=== PATIENT | female | born 1950 | race Caucasian/White ===

== ENCOUNTER 2017-06-25 19:42 | Inpatient (IN) ==
[2017-06-25] MEDS ORDERED: MORPHINE 2 MG/1 ML SYRINGE IV STA (21:10)
[2017-06-25] MEDS ORDERED: SODIUM CHLORIDE 0.9% 1,000 ML IV STA ×2 (21:10→22:35)
[2017-06-25] MEDS ORDERED: METOCLOPRAMIDE 10 MG/2 ML VIAL IV STA (21:11)
[2017-06-25 21:25] LABS: Basophils # 0.1 10*3/uL (0.0-0.2); Basophils % 0.7 % (0.0-0.8); Eosinophils # 0.2 10*3/uL (0.0-0.87); Eosinophils % 2.3 % (0.00-10.9); Hematocrit 37.1 VOL% (35.7-47.0); Hemoglobin 11.8 GM/DL (12.0-16.0); Immature Granulocytes % 0.4 %; Immature Granulocytes Absolute 0.03 #; Lymphocytes # 1.4 10*3/uL (1.4-4.0); Lymphocytes % 19.7 % (21.3-54.2); Mean Corpuscular HGB Conc 31.8 GM/DL (32-36); Mean Corpuscular Hemoglobin 26 PG (27-34); Mean Platelet Volume 9.9 FL (9.6-12.0); Monocytes # 0.5 10*3/uL (0.11-0.8); Monocytes % 6.9 % (1.7-12.7); Neutrophils # 4.9 10*3/uL (1.4-7.4); Platelet Count 270 T/CUMM (130-400); Red Blood Count 4.47 MC/CUMM (3.8-5.5); Red Cell Distribution Width 14.6 % (9.3-17.3); White Blood Count 7.1 T/CUMM (4-12)
[2017-06-25] MEDS ORDERED: METOCLOPRAMIDE 10 MG/2 ML VIAL ONE (21:34)
[2017-06-25] MEDS ORDERED: MORPHINE 2 MG/1 ML SYRINGE ONE (21:35)
[2017-06-25 21:44] LABS: Apearance,Urine Slightly Hazy (Clear); Bacteria,Urine Many /HPF (Few); Bilirubin,Urine Negative (Negative); Blood, Urine Negative (Negative); Glucose,Urine (UA) 150 mg/dL (Negative); Ketones,Urine Negative (Negative); Mucus,Urine Occasional /LPF (Occasional); Nitrite,Urine Positive (Negative); Protein,Urine Negative; RBC,Urine 1 /HPF (0-4); Squamous Epithelial Cell,Urine Occasional /HPF (0-10); Urine Color Yellow (Yellow); Urine Urobilinogen < 2.0 EU/DL (0.2-1.0); WBC,Urine 35 /HPF (0-6)
[2017-06-25 21:45] LABS: Alanine Aminotransferase 41 U/L (13-56); Albumin 3.7 G/DL (3.4-5.0); Alkaline Phosphatase 130 U/L (45-117); Aspartate Amino Transferase 45 U/L (0-37); Bilirubin,Total < 0.39 MG/DL (0.2-1.0); Blood Urea Nitrogen 15 MG/DL (7-18); Glucose 240 MG/DL (74-106); Osmolality,Calculated 283.7 MOS/KG (273-304); Potassium 3.8 MMOL/L (3.5-5.1); Sodium 138 MMOL/L (136-145); Total Protein 6.4 G/DL (6.4-8.3)
[2017-06-25 21:51] LABS: Lactic Acid 2.3 MMOL/L (0.4-2.0)
[2017-06-25] MEDS ORDERED: SODIUM CHLORIDE 0.9% 2,550 ML IV ONE (23:16)
[2017-06-25] MEDS ORDERED: PROMETHAZINE 25 MG/1 ML VIAL IM PRN (23:33)
[2017-06-25] MEDS ORDERED: MORPHINE 2 MG/1 ML SYRINGE IV PRN (23:33)
[2017-06-25] MEDS ORDERED: ONDANSETRON 4 MG/2 ML VIAL IV PRN (23:33)
[2017-06-25] MEDS ORDERED: GLUCAGON 1 MG VIAL IM PRN (23:33)
[2017-06-25] MEDS ORDERED: DEXTROSE 50% 25 GM/50 ML SYRINGE IV PRN (23:33)
--- NOTE | 2017-06-25 23:37 | Emergency Department Note ---
Noel Germain Gwan, am scribing for, and in the presence of, Kian Yuen MD 21:14. IWilfrid Kevin Lee, MD, personally performed the services described in this documentation, ascribed by Jorge Cohen in my presence, and it is both accurate and complete . Arrival - Arrival Chief Complaint: Abdominal / Flank Pain Stated Complaint: stomach swollen and painful ED Nursing Triage Note: Pt to triage with c/o abd being swollen and painful that started . Pt states this happened once before, but she cant remember why. Pt states her last bm was [employer] and it was normal. Pt see Dr. Hernandez for GI. Mode of Arrival: Ambulatory Limitations: No Limitations Source: Patient, Old Records Reviewed, RN Notes Reviewed Time Seen by Provider: 06/25/17 20:52 - History of Present Illness HPI Narrative: Patient is a 66 y/o female who present to the ED with a c/o abd edema and pain with an onset 2 days ago. Patient stated that this has happened before and that she was hospitalized for it. she is unsure of her dx. She confirmed that her last BM was [employer] and that eating exacerbates her pain. Her associated sxs have been nausea. She denies any vomiting or any injury to her abd area. Patient is being followed by Dr. Mcgowan and Dr. Hernandez. During exam, pt did not display any signs of distress. No other problems/complaints reported in ED. Onset (ago): day(s) Consistency: constant Severity: moderate Allergies/Adverse Reactions: Allergies Allergy/AdvReac Type Severity Reaction Status Date / Time codeine AdvReac Unknown/Unable Verified 09/03/15 16:27 to obtain Home Medications: Home Medications Medication Instructions Recorded Confirmed Type Cyclobenzaprine [Flexeril] 10 mg PO BID PRN 09/03/15 05/31/17 History Docusate Sodium 100 mg PO DAILY 09/03/15 05/31/17 History Metformin HCl [Metformin HCl ER] 1,000 mg PO BEDTIME 09/03/15 05/31/17 History Pantoprazole Tab [Protonix Tab] 40 mg PO BID 09/03/15 05/31/17 History Potassium Chloride 20 meq PO DAILY 09/03/15 05/31/17 History Citalopram [CeleXA] 40 mg PO BEDTIME 04/20/17 05/31/17 History Glimepiride 4 mg PO BID 04/20/17 05/31/17 History Losartan [Cozaar] 50 mg PO DAILY 04/20/17 05/31/17 History Magnesium Oxide 2 tablet PO DAILY 04/20/17 05/31/17 History Oxybutynin Chloride [Oxybutynin 15 mg PO DAILY 04/20/17 05/31/17 History Chloride ER] Cholecalciferol [Vitamin D3] 2,000 unit PO DAILY 05/25/17 05/31/17 History Gabapentin 300 mg PO TID 05/25/17 05/25/17 History Vitamin D3/Aloe [id number] 1 tablet PO DAILY 05/25/17 05/25/17 History sitaGLIPtin [Januvia] 100 mg PO DAILY 05/25/17 05/25/17 History Calcium Citrate 600 mg PO QPM 05/31/17 05/31/17 History Review of System - Review of System 12 point system: reviewed and no additional remarkable complaints except as stated - Review of System Cardiovascular: Absent: chest pain, palpitations Gastrointestinal: Present: as per HPI, abdominal pain, nausea. Absent: vomiting , diarrhea Genitourinary female: Absent: abnormal menses, dysuria, discharge, dyspareunia, frequency Medical,Surgical,& Family Hx - Medical History Cardio: History of: Hypertension Psychological: History of: Depression Neurology: History of: Migraine, Peripheral Neuropathy, Seizures (2010) Endocrine: History of: Diabetes Mellitus (NIDDM), Thyroid Disorder (has 2 tumors on thyroid-benign, radioactive pill) No history of: Dyslipidemia Respiratory: History of: Asthma (brought on by cigarettes or perfume), Obstructive Sleep Apnea (USES CPAP AT HOME) Genitourinary: History of: Kidney Stones (2010) No history of: Bladder Problem Gastrointestinal: History of: Bowel Obstruction, GERD, GI Problems (DIABETIC INTESTINAL PARALYSIS) Musculoskeletal: History of: Amputation, Musculoskeletal Problems (diabetic neuropathy) Hematology: No history of: Blood Transfusion Reaction Other: History of: Anesthesia Reactions (bp drops) No history of: Cancer - Surgical History Cardiac Surgeries: Sugical HX of: Cardiac Catheterization (2011) Thoracic Surgeries: Patient denies;: Organ Transplant, Lobectomy Neurologic Surgeries: Patient denies: Neurologic Surgery HEENT Surgeries: Surgical HX of: Tonsilectomy & Adenoidectomy Patient denies: Thyroid Surgery Comment Only: Eye Surgery (cataracts) Abdominal Surgeries: Surgical HX of: Abdominal Surgery, Appendectomy, Cholecystectomy, Colonoscopy, EGD Patient denies: Hernia Repair Reproductive Surgeries: Surgical HX of;: Genitourinary Surgery (had stones removed), Gynecologic Surgery, Hysterectomy Orthopedic Surgeries: Surgical HX of;: Orthopedic Surgery (knee scope RIGHT) - Family History Family History: Reports;: Family Cancer (pancreatic cancer-uncle, mother-breast/ colon), Family Diabetes - Social History Smoking Status: Unknown if ever smoked Frequency of Alcohol Use: None Type of Drug Use: None Exam Vital Signs: Vital Signs Temperature 97.5 F L 06/25/17 20:38 Pulse Rate 67 06/25/17 20:38 Respiratory Rate 18 06/25/17 20:38 Blood Pressure 142/69 06/25/17 20:38 O2 Sat by Pulse Oximetry 98 06/25/17 20:07 - General General appearance: alert, in no apparent distress - Head Head exam: Present: atraumatic, normocephalic - Eye Eye exam: Present: normal appearance, PERRL, EOMI - ENT ENT exam: Present: normal oropharynx, mucous membranes moist, TM's normal bilaterally, normal external ear exam - Neck Neck exam: Present: full ROM, trachea midline. Absent: tenderness - Chest Chest inspection: Present: symmetric chest wall rise. Absent: tenderness - Respiratory Respiratory exam: Present: normal lung sounds bilaterally. Absent: respiratory distress - Cardiovascular Cardiovascular exam: Present: regular rate, normal rhythm, normal heart sounds. Absent: murmur - Abdominal Exam Abdominal exam: Present: distention, tenderness (generalized ) - Extremities Exam Extremities exam: Present: full ROM. Absent: tenderness - Back Exam Back exam: Present: full ROM. Absent: tenderness - Neurological Exam Neurological exam: Present: alert, oriented X3, CN II-XII intact. Absent: motor sensory deficit - Psychiatric Psychiatric exam: Present: normal affect, normal mood - Skin Skin exam: Present: warm, dry, intact, normal color Course Course Narrative: will admit for IV abx and fluids and repeat lactate Results - Labs CBC & BMP: 06/25/17 21:14 06/25/17 21:14 Lab Results: I have reviewed the patients labs Labs: Laboratory Tests 06/25/17 21:14 WBC 7.1 RBC 4.47 Hgb 11.8 L Hct 37.1 MCV 83.0 L MCH 26 L MCHC 31.8 L Plt Count 270 Lymph % (Auto) 19.7 L Laboratory Tests 06/25/17 06/25/17 21:14 21:14 Sodium 138 Potassium 3.8 Chloride 104 Carbon Dioxide 28 BUN 15 Creatinine 0.80 Glucose 240 H Lactic Acid 2.3 H AST 45 H Alkaline Phosphatase 130 H Urine pH 6.0 Ur Specific Bond 1.010 Urine Glucose (UA) 150 Urine Nitrate Positive H Urine Urobilinogen < 2.0 H Urine Leukocytes Small H Urine RBC 1 Urine WBC 35 Ur Squamous Epith Cells Occasional Urine Mucus Occasional - Diagnostic Findings Procedure: CT Abdomen and Pelvis: image reviewed by me (see report ) Disposition Clinical Impression: UTI (urinary tract infection), Elevated lactic acid level Case discussed with: patient Disposition: Still a Patient Condition: Stable
[2017-06-26] MEDS: SODIUM CHLORIDE 0.45% 1,000 ML IV SCH ×4 (02:00→23:55)
[2017-06-26 02:25] LABS: Basophils # 0.1 10*3/uL (0.0-0.2); Basophils % 0.8 % (0.0-0.8); Eosinophils # 0.2 10*3/uL (0.0-0.87); Eosinophils % 2.5 % (0.00-10.9); Hematocrit 33.8 VOL% (35.7-47.0); Hemoglobin 10.6 GM/DL (12.0-16.0); Immature Granulocytes % 0.8 %; Immature Granulocytes Absolute 0.05 #; Lymphocytes # 1.2 10*3/uL (1.4-4.0); Lymphocytes % 19.6 % (21.3-54.2); Mean Corpuscular HGB Conc 31.4 GM/DL (32-36); Mean Corpuscular Hemoglobin 26 PG (27-34); Mean Corpuscular Volume 83.9 FL (87-102); Mean Platelet Volume 9.9 FL (9.6-12.0); Monocytes # 0.4 10*3/uL (0.11-0.8); Monocytes % 6.8 % (1.7-12.7); Neutrophils # 4.2 10*3/uL (1.4-7.4); Neutrophils % 69.5 % (38.7-73.9); Platelet Count 230 T/CUMM (130-400); Red Blood Count 4.03 MC/CUMM (3.8-5.5); Red Cell Distribution Width 14.6 % (9.3-17.3); White Blood Count 6.1 T/CUMM (4-12)
[2017-06-26 02:50] LABS: Calcium 8.1 MG/DL (8.5-10.1); Osmolality,Calculated 286.1 MOS/KG (273-304)
[2017-06-26] MEDS: PIPERACILLIN/TAZOBACTAM 3,375 MG in SODIUM CHLORIDE 0.9% 100 ML IV SCH ×3 (03:13→18:30)
--- NOTE | 2017-06-26 08:09 | CT Report ---
Exam: CT abdomen and pelvis with and without intravenous contrast Exam date: 06/25/2017 9:10 PM Clinical History: 66 years,Female, abdominal pain, generalized Technique: Axial computed tomography images of the abdomen and pelvis with and without intravenous contrast. All CT scans at this facility use one or more dose reduction techniques. Automated exposure control, MA/KV adjustment per patient size (including targeted exam Square dose is matched to indication) or iterative reconstruction technique Comparison: November 04, 2015 at 0906 hours Findings: Lower thorax: No acute pathology within the lung bases. Abdomen: Liver: Diffusely hypoattenuating Gallbladder and bile ducts: Prior cholecystectomy with mild intra and extrahepatic ductal dilatation. Pancreas: Pancreas is normal. Spleen: Spleen is normal. Adrenals: No adrenal mass. Kidneys and ureters: Normal in size, echotexture and morphology. No hydronephrosis. No ureteral calculus. Stomach and bowel: A few scattered colonic diverticula. No associated inflammatory changes. Stool dispersed throughout the colon. Appendix: Not clearly visualized. No secondary findings to suggest appendicitis. Pelvis: Bladder: Unremarkable Reproductive: Prior hysterectomy. Abdomen and pelvis: Intraperitoneal space: No pneumoperitoneum. No free intraperitoneal fluid Bones/joints: No acute osseous abnormality. Soft tissues: No mass Vasculature: No aortic aneurysm. Atheromatous calcifications noted along the aorta and branch vessels. Lymph nodes: No adenopathy Impression: 1. Diverticulosis coli 2. Moderate stool dispersed throughout the colon 3. Hepatic steatosis 4. Other findings as discussed above PROCEDURE INTERPRETED AT [facility] DEPARTMENT OF RADIOLOGY Final Report Signed by: aRy Thomas
[2017-06-26] MEDS: DOCUSATE SODIUM 100 MG CAPSULE PO SCH ×2 (09:22→21:53)
[2017-06-26] MEDS: ENOXAPARIN 40 MG/0.4 ML SYRINGE SUBCUT SCH (09:22)
[2017-06-26] MEDS: INSULIN REGULAR 100 UNIT/ML SUBCUT SCH ×4 (09:23→22:00)
[2017-06-26] MEDS: PANTOPRAZOLE 40 MG TABLET PO SCH (09:23)
--- NOTE | 2017-06-26 10:27 | Family Practice History&Phys ---
Assessment and Plan (1) Abdominal pain Status: Acute Assessment and plan: , Abdominal distention improving, on IV fluids, clear liquid diet, will consult GI 2. UTI, urine culture noted, continue IV Zosyn 3. History of diverticulosis, H&H stable, 4. DM , stable , continue sliding scale insulin, 5.HTN , continue current antihypertensives, 6. Sleep apnea, continue CPAP Current Visit: Yes (2) GERD (gastroesophageal reflux disease) Status: Chronic Current Visit: Yes (3) History of diverticulosis Status: Chronic Current Visit: Yes (4) UTI (urinary tract infection) Status: Acute Current Visit: Yes (5) Hypertension Status: Chronic Current Visit: Yes (6) Obstructive sleep apnea Status: Chronic Current Visit: Yes (7) Type 2 diabetes mellitus Status: Chronic Current Visit: Yes History of Present Illness Chief complaint: Abdominal pain/distention since 3 days History of present illness: Ms. Carvalho is a 66 year old female PCP: Dr. Mcgowan, Patient admitted for abdominal pain, distention since 3 days, getting worse. Abdominal pain was intermittent, intensity 9/10, with nausea, no vomiting, no diarrhea.[place] short of breath because of the abdominal distention pushing into the chest. No difficulty swallowing. Patient has similar complaints of abdominal distention/pain 1+ year ago,Patient has history chronic constipation, takes laxative often., last bowel movement this a.m., regular no blood. history of diabetes, hypertension, osteoarthritis, restless leg syndrome, depression and overactive bladder, sleep apnea on CPAP. EGD report, noted 05/31/2017, done by Dr. Hernandez,Postop diagnosis: 1. Gastroesophageal reflux disease-continue PPI treatment and antireflux precautions. 2. Esophageal stricture-repeat dilatation on as-needed basis. C scope noted, 11/19/2015, done by Dr. Hernandez, as per report assessment diverticulosis of colon, has history of colon polyps, Home Medications Medication Instructions Recorded Confirmed Type Cyclobenzaprine [Flexeril] 15 mg PO BID PRN 09/03/15 06/26/17 History Docusate Sodium 200 mg PO BID 09/03/15 06/26/17 History Metformin HCl [Metformin HCl ER] 1,000 mg PO BID 09/03/15 06/26/17 History Pantoprazole Tab [Protonix Tab] 40 mg PO BID 09/03/15 06/26/17 History Potassium Chloride 20 meq PO DAILY 09/03/15 06/26/17 History Citalopram [CeleXA] 40 mg PO BEDTIME 04/20/17 06/26/17 History Glimepiride 4 mg PO BID 04/20/17 06/26/17 History Losartan [Cozaar] 50 mg PO DAILY 04/20/17 06/26/17 History Magnesium Oxide 2 tablet PO BID 04/20/17 06/26/17 History Oxybutynin Chloride [Oxybutynin 15 mg PO DAILY 04/20/17 06/26/17 History Chloride ER] Cholecalciferol [Vitamin D3] 2,000 unit PO DAILY 05/25/17 06/26/17 History sitaGLIPtin [Januvia] 100 mg PO DAILY 05/25/17 06/26/17 History Calcium Citrate 600 mg PO QPM 05/31/17 06/26/17 History Fluorouracil 5% Cream [Efudex 5% 1 applic TOP BID 06/26/17 06/26/17 History Cream] Gabapentin Cap/Tab [Neurontin 400 mg PO TID 06/26/17 06/26/17 History Cap/Tab] Insulin Degludec [Tresiba 200 units SUBCUT DAILY 06/26/17 06/26/17 History Flextouch U-200] Saccharomyces Boulardii [Probiotic] 10 mg PO DAILY 06/26/17 06/26/17 History Allergies Allergy/AdvReac Type Severity Reaction Status Date / Time codeine AdvReac Unknown/Unable Verified 09/03/15 16:27 to obtain - Constitutional Constitutional: Present: as per HPI - EENT Eyes: Present: as per HPI Nose, mouth and throat: Present: as per HPI - Cardiovascular Cardiovascular: Present: as per HPI - Respiratory Respiratory: Present: as per HPI - Gastrointestinal Gastrointestinal: Present: as per HPI - Genitourinary Genitourinary: Present: as per HPI - Musculoskeletal Musculoskeletal: Present: as per HPI - Neurological Neurological: Present: as per HPI - Psychiatric Psychiatric: Present: as per HPI - Endocrine Endocrine: Present: as per HPI - Hematologic/Lymphatic Hematologic/Lymphatic: Present: as per HPI Medical,Surgical,& Family Hx - Medical History Cardio: History of: Hypertension Psychological: History of: Depression Neurology: History of: Migraine, Peripheral Neuropathy, Seizures (2010) Endocrine: History of: Diabetes Mellitus (NIDDM), Thyroid Disorder (has 2 tumors on thyroid-benign, radioactive pill) No history of: Dyslipidemia Respiratory: History of: Asthma (brought on by cigarettes or perfume), Obstructive Sleep Apnea (USES CPAP AT HOME) Genitourinary: History of: Kidney Stones (2010) No history of: Bladder Problem Gastrointestinal: History of: Bowel Obstruction, GERD, GI Problems (DIABETIC INTESTINAL PARALYSIS) Musculoskeletal: History of: Amputation, Musculoskeletal Problems (diabetic neuropathy) Hematology: No history of: Blood Transfusion Reaction Other: History of: Anesthesia Reactions (bp drops) No history of: Cancer - Surgical History Cardiac Surgeries: Sugical HX of: Cardiac Catheterization (2011) Thoracic Surgeries: Patient denies;: Organ Transplant, Lobectomy Neurologic Surgeries: Patient denies: Neurologic Surgery HEENT Surgeries: Surgical HX of: Tonsilectomy & Adenoidectomy Patient denies: Thyroid Surgery Comment Only: Eye Surgery (cataracts) Abdominal Surgeries: Surgical HX of: Abdominal Surgery, Appendectomy, Cholecystectomy, Colonoscopy, EGD Patient denies: Hernia Repair Reproductive Surgeries: Surgical HX of;: Genitourinary Surgery (had stones removed), Gynecologic Surgery, Hysterectomy Orthopedic Surgeries: Surgical HX of;: Orthopedic Surgery (knee scope RIGHT) - Family History Family History: Reports;: Family Cancer (pancreatic cancer-uncle, mother-breast/ colon), Family Diabetes - Social History Smoking Status: Unknown if ever smoked Frequency of Alcohol Use: None Type of Drug Use: None Exam - Constitutional Vitals: Period Temp Pulse Resp BP Sys/Hope Pulse Ox Last 24 Hr 97.5 F-98.0 F 53-67 15-18 125-162/69-84 94-100 Exam: Examination: GENERAL: Alert, oriented, in no acute distress , obese female pt, lying in the bed, HEENT: normal,PERRLA. EOMI. Mucous membranes are moist. NECK: Neck is supple. No JVD. No carotid bruit. No thyromegaly. CVS: Regular rate and rhythm. S1 and S2 are normal. RESPIRATORY: Clear to ausculation bilaterally , No wheezes, rales or rhonchi. ABDOMEN: Soft , distended abdomen, no tenderness at the time of exam, no guarding, no rigidity, no rebound tenderness. Bowel sounds are present. No hepatosplenomegaly. EXT: No edema. APPEALS WRITER: Patient is awake, alert and oriented, Cranial nerves 2-12 grossly intact. Motor strength normal. Results - Labs CBC & BMP: 06/26/17 02:03 06/26/17 02:03 Lab Results: I have reviewed the past 24 hour labs - Diagnostic Findings Procedure: CT: image reviewed by me, report reviewed by me
[2017-06-26] MEDS ORDERED: SODIUM CHLORIDE 0.9% 1,000 ML IV SCH (11:00)
[2017-06-26] MEDS: LOSARTAN 50 MG TABLET PO SCH (16:06)
[2017-06-26] MEDS: ACETAMINOPHEN 325 MG TABLET PO PRN ×2 (18:33→22:02)
[2017-06-27] MEDS: PIPERACILLIN/TAZOBACTAM 3,375 MG in SODIUM CHLORIDE 0.9% 100 ML IV SCH ×3 (03:30→18:05)
[2017-06-27 06:39] LABS: Basophils # 0.1 10*3/uL (0.0-0.2); Basophils % 1.2 % (0.0-0.8); Eosinophils # 0.3 10*3/uL (0.0-0.87); Eosinophils % 4.2 % (0.00-10.9); Hematocrit 37.7 VOL% (35.7-47.0); Hemoglobin 11.9 GM/DL (12.0-16.0); Immature Granulocytes % 0.5 %; Immature Granulocytes Absolute 0.03 #; Lymphocytes % 17.4 % (21.3-54.2); Mean Corpuscular HGB Conc 31.6 GM/DL (32-36); Mean Corpuscular Hemoglobin 26 PG (27-34); Mean Corpuscular Volume 82.3 FL (87-102); Mean Platelet Volume 10.4 FL (9.6-12.0); Monocytes # 0.4 10*3/uL (0.11-0.8); Monocytes % 7.1 % (1.7-12.7); Neutrophils # 4.1 10*3/uL (1.4-7.4); Neutrophils % 69.6 % (38.7-73.9); Platelet Count 256 T/CUMM (130-400); Red Blood Count 4.58 MC/CUMM (3.8-5.5); Red Cell Distribution Width 14.6 % (9.3-17.3); White Blood Count 5.9 T/CUMM (4-12)
[2017-06-27 07:09] LABS: Calcium 8.8 MG/DL (8.5-10.1); Free T4 (Free Thyroxine) 1.48 NG/DL (0.76-1.46); Magnesium 2.2 MG/DL (1.8-2.4); Osmolality,Calculated 283.3 MOS/KG (273-304); Potassium 3.8 MMOL/L (3.5-5.1); Thyroid Stimulating Hormone 1.69 uIU/ml (0.358-3.74)
[2017-06-27] MEDS: LOSARTAN 50 MG TABLET PO SCH (08:58)
[2017-06-27] MEDS: DOCUSATE SODIUM 100 MG CAPSULE PO SCH ×2 (08:58→20:54)
[2017-06-27] MEDS: ENOXAPARIN 40 MG/0.4 ML SYRINGE SUBCUT SCH (08:58)
[2017-06-27] MEDS: PANTOPRAZOLE 40 MG TABLET PO SCH (08:58)
[2017-06-27] MEDS: INSULIN REGULAR 100 UNIT/ML SUBCUT SCH ×4 (08:58→20:54)
--- NOTE | 2017-06-27 08:58 | Internal Med Progress Note ---
Assessment and Plan (1) Abdominal pain Status: Acute Assessment and plan: 66-year-old female admitted to acute care * Abdominal pain and discomfort. CT scan of abdomen was reviewed. It shows scattered stool. It could be a high impaction will check her for that. GI is consulted for evaluation and recommendations * UTI. Continue antibiotics till cultures are reported * Elevated liver enzymes. Patient with previous cholecystectomy * Diabetes. Continue current treatment * Hypertension. Blood pressure is slightly high. Current Visit: Yes (2) UTI (urinary tract infection) Status: Acute Current Visit: Yes (3) GERD (gastroesophageal reflux disease) Status: Chronic Current Visit: Yes (4) History of diverticulosis Status: Chronic Current Visit: Yes (5) Hypertension Status: Chronic Current Visit: Yes (6) Type 2 diabetes mellitus Status: Chronic Current Visit: Yes Internal Medicine - PN: Subj Interval history: Patient seen and examined. Her chart was reviewed. She continues to have complaints of abdominal distention. She has been on clear liquids for past couple of days. She has been having bowel movements. She denies any significant pain. She denies any nausea or vomiting. Exam (Progress Note) - Constitutional Vitals: Period Temp Pulse Resp BP Sys/Hope Pulse Ox Last 24 Hr 97.2 F-98.4 F 52-70 16-20 158-197/73-90 92-98 Exam: Examination: GENERAL: NAD. HEENT: PERRLA. EOMI. NECK: Neck is supple. CVS: Regular rate and rhythm. S1 and S2 are normal. RESPIRATORY: Lungs are clear. ABDOMEN: Soft and nontender. Bowel sounds are present. No hepatosplenomegaly. EXT: No edema. Peripheral pulses are present. [employer]: Patient is awake, alert and oriented to time place and person. Cranial nerves II through XII are grossly intact. Motor strength is 5 over 5 both upper and lower extremities. SKIN: Warm and dry. MSK: No obvious deformity. Results - Labs CBC & BMP: 06/27/17 04:54 06/27/17 04:54 Lab Results: I have reviewed the past 24 hour labs
--- NOTE | 2017-06-27 09:09 | Gastrointestinal Progress Note ---
Assessment and Plan (1) Abdominal pain Status: Acute Assessment and plan: 06/27-admitted with abdominal pain and bloating with prior history of this in the past. Prior endoscopy noted as below. Currently being treated for UTI. CT of abdomen findings noted of diverticulosis. Continue to monitor at present time. Plan an addendum to followed by Dr. Hernandez. Current Visit: Yes Gastroenterology - PN: Subj Interval history: CC: Abdominal pain Patient is seen, awake and alert. States she rested fairly well last night. Patient was admitted on Tuesday with a 2 day history of abdominal pain and bloating. She states that this came on fairly sudden she denies any nausea vomiting it was associated with this. She had no complaints of diarrhea or changes in her bowel patterns as well. She does complain of some epigastric tenderness but states she has "arthritis" in her sternal area which will flare from time to time. Her last hospital stay for this abdominal pain was in November of last year which patient states this feels very similar to that. She was admitted at that time for obstipation and questionable ileus as well as gastroenteritis. She states this episode has very similar presentation. Her last endoscopy was noted in 2015 for colonoscopy with findings of diverticulosis however no colon polyps. She also had an EGD done in earlier this year with findings of stricture with dilation. She was found on admission to have a UTI as well as elevated lactic acid level which is now normalized. She is tolerating clear liquids at this time however still complaining of abdominal bloating. Abdomen is soft, nontender to palpation. ROS: Denies shortness of breath or chest pain Exam (Progress Note) - Constitutional Vitals: Period Temp Pulse Resp BP Sys/Hope Pulse Ox Last 24 Hr 97.2 F-98.4 F 52-70 16-20 158-197/73-90 92-98 General appearance: normal weight, no acute distress - Head Head exam: Present: normal inspection, normocephalic - Eye Eye exam: Present: other (Lids and conjunctivae are unremarkable). Absent: scleral icterus - ENT ENT exam: Present: normal exam, normal oropharynx - Neck Neck exam: Present: normal inspection - Respiratory Respiratory exam: Present: clear to auscultation bilaterally. Absent: rales, rhonchi, wheezes - Cardiovascular Cardiovascular exam: Present: regular rate and rhythm. Absent: diastolic murmur , JVD, systolic murmur - GI/Abdominal GI/Abdominal exam: Present: normal bowel sounds, soft. Absent: ascites, distended, mass, organomegaly, tenderness - Extremities Exam Extremities exam: Present: normal inspection, full ROM - Back Exam Back exam: Present: normal inspection - Neurological Exam Neurological exam: Present: alert, oriented X3 - Psychiatric Psychiatric exam: Present: normal affect, normal mood - Skin Skin exam: Present: normal color, warm, dry Results - Labs CBC & BMP: 06/27/17 04:54 06/27/17 04:54 Lab Results: I have reviewed the past 24 hour labs - Diagnostic Findings Procedure: CT Abdomen and Pelvis: report reviewed by me
--- NOTE | 2017-06-27 09:15 | Gastrointestinal Consult Note ---
<Rosy Morejon - Last Filed: 06/27/17 09:11> Assessment and Plan (1) Abdominal pain Status: Acute Assessment and plan: 06/27-5 day history of abdominal pain and distention with nausea. Prior history in the past with no etiology for symptoms at that time other than obstipation/ gastroneuritis. CT of abdomen noted as below showing diverticulosis. Findings of UTI with IV antibiotic initiation noted. No complaints of nausea vomiting. Prior endoscopy also noted as below. Plan an addendum to followed by Dr. Hernandez. Current Visit: Yes History of Present Illness Chief complaint: Abdominal pain History of present illness: Ms. Carvalho is a 66 year old female who was admitted to the hospital on Tuesday with 2 day history of abdominal pain and bloating. Patient states that she was in her usual state of health until when she noticed that her abdomen began to swell and she has some discomfort. She denies any associated vomiting with this but did have some mild nausea. She states that she has a history of constipation however she has had no changes in her bowel patterns with this. 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 She states that she has had this abdominal pain and distention in the past and was hospitalized in 2016 for IBS with obstipation and questionable ileus as well as gastroenteritis. She states this episode has a very similar presentation. Patient states that she does take laxatives for bowel movements but she has been having fairly regular movements without any melena or hematochezia. She denies any recent weight loss. On admission, she had a CT of the abdomen done which showed diverticulosis as well as moderate stool throughout the colon. She was also found to have a UTI and has had Zosyn IV started. Her last endoscopy was in 2016 for colonoscopy with only findings of diverticulosis. In 2017 she had an EGD with esophageal stricture dilation. She denies any difficulty swallowing, increased GERD, dyspepsia. Patient states that she is becoming fairly frustrated with these episodes of abdominal bloating due to "no answers for this yet". Patient was also noted to have very mildly elevated AST and alkaline phosphatase on admission. She is post cholecystectomy. Home Medications Medication Instructions Recorded Confirmed Type Cyclobenzaprine [Flexeril] 15 mg PO BID PRN 09/03/15 06/26/17 History Docusate Sodium 200 mg PO BID 09/03/15 06/26/17 History Metformin HCl [Metformin HCl ER] 1,000 mg PO BID 09/03/15 06/26/17 History Pantoprazole Tab [Protonix Tab] 40 mg PO BID 09/03/15 06/26/17 History Potassium Chloride 20 meq PO DAILY 09/03/15 06/26/17 History Citalopram [CeleXA] 40 mg PO BEDTIME 04/20/17 06/26/17 History Glimepiride 4 mg PO BID 04/20/17 06/26/17 History Losartan [Cozaar] 50 mg PO DAILY 04/20/17 06/26/17 History Magnesium Oxide 2 tablet PO BID 04/20/17 06/26/17 History Oxybutynin Chloride [Oxybutynin 15 mg PO DAILY 04/20/17 06/26/17 History Chloride ER] Cholecalciferol [Vitamin D3] 2,000 unit PO DAILY 05/25/17 06/26/17 History sitaGLIPtin [Januvia] 100 mg PO DAILY 05/25/17 06/26/17 History Calcium Citrate 600 mg PO QPM 05/31/17 06/26/17 History Fluorouracil 5% Cream [Efudex 5% 1 applic TOP BID 06/26/17 06/26/17 History Cream] Gabapentin Cap/Tab [Neurontin 400 mg PO TID 06/26/17 06/26/17 History Cap/Tab] Insulin Degludec [Tresiba 200 units SUBCUT DAILY 06/26/17 06/26/17 History Flextouch U-200] Saccharomyces Boulardii [Probiotic] 10 mg PO DAILY 06/26/17 06/26/17 History Allergies Allergy/AdvReac Type Severity Reaction Status Date / Time codeine AdvReac Unknown/Unable Verified 09/03/15 16:27 to obtain Medical,Surgical,& Family Hx - Medical History Cardio: History of: Hypertension Psychological: History of: Depression Neurology: History of: Migraine, Peripheral Neuropathy, Seizures (2010) Endocrine: History of: Diabetes Mellitus (NIDDM), Thyroid Disorder (has 2 tumors on thyroid-benign, radioactive pill) No history of: Dyslipidemia Respiratory: History of: Asthma (brought on by cigarettes or perfume), Obstructive Sleep Apnea (USES CPAP AT HOME) Genitourinary: History of: Kidney Stones (2010) No history of: Bladder Problem Gastrointestinal: History of: Bowel Obstruction, GERD, GI Problems (DIABETIC INTESTINAL PARALYSIS) Musculoskeletal: History of: Amputation, Musculoskeletal Problems (diabetic neuropathy) Hematology: No history of: Blood Transfusion Reaction Other: History of: Anesthesia Reactions (bp drops) No history of: Cancer - Surgical History Cardiac Surgeries: Sugical HX of: Cardiac Catheterization (2011) Thoracic Surgeries: Patient denies;: Organ Transplant, Lobectomy Neurologic Surgeries: Patient denies: Neurologic Surgery HEENT Surgeries: Surgical HX of: Tonsilectomy & Adenoidectomy Patient denies: Thyroid Surgery Comment Only: Eye Surgery (cataracts) Abdominal Surgeries: Surgical HX of: Abdominal Surgery, Appendectomy, Cholecystectomy, Colonoscopy, EGD Patient denies: Hernia Repair Reproductive Surgeries: Surgical HX of;: Genitourinary Surgery (had stones removed), Gynecologic Surgery, Hysterectomy Orthopedic Surgeries: Surgical HX of;: Orthopedic Surgery (knee scope RIGHT) - Family History Family History: Reports;: Family Cancer (pancreatic cancer-uncle, mother-breast/ colon), Family Diabetes - Social History Smoking Status: Unknown if ever smoked Frequency of Alcohol Use: None Type of Drug Use: None 12 point system: reviewed and no additional remarkable complaints except as stated - Constitutional Constitutional: Present: as per HPI - EENT Eyes: Present: as per HPI Ears: Present: as per HPI Nose, mouth and throat: Present: as per HPI - Cardiovascular Cardiovascular: Present: as per HPI - Respiratory Respiratory: Present: as per HPI - Gastrointestinal Gastrointestinal: Present: as per HPI, abdominal pain, bloating, nausea - Genitourinary Genitourinary: Present: as per HPI - Musculoskeletal Musculoskeletal: Present: as per HPI - Neurological Neurological: Present: as per HPI - Psychiatric Psychiatric: Present: as per HPI - Endocrine Endocrine: Present: as per HPI - Hematologic/Lymphatic Hematologic/Lymphatic: Present: as per HPI Exam - Constitutional Vitals: Period Temp Pulse Resp BP Sys/Hope Pulse Ox Last 24 Hr 97.2 F-98.4 F 52-70 16-20 158-197/73-90 92-98 General appearance: normal weight, no acute distress - Head Head exam: Present: normal inspection, normocephalic - Eye Eye exam: Present: other (Lids and conjunctivae are unremarkable). Absent: scleral icterus - ENT ENT exam: Present: normal exam, normal oropharynx - Neck Neck exam: Present: normal inspection - Respiratory Respiratory exam: Present: clear to auscultation bilaterally. Absent: rales, rhonchi, wheezes - Cardiovascular Cardiovascular exam: Present: regular rate and rhythm. Absent: JVD, systolic murmur - GI/Abdominal GI/Abdominal exam: Present: normal bowel sounds, distended, soft. Absent: ascites, mass, organomegaly, tenderness - Extremities Exam Extremities exam: Present: normal inspection, full ROM - Back Exam Back exam: Present: normal inspection - Neurological Exam Neurological exam: Present: alert, oriented X3 - Psychiatric Psychiatric exam: Present: normal affect, normal mood - Skin Skin exam: Present: normal color, warm, dry Results - Labs CBC & BMP: 06/27/17 04:54 06/27/17 04:54 Lab Results: I have reviewed the past 24 hour labs - Diagnostic Findings Procedure: CT Abdomen and Pelvis: report reviewed by me <Lj Hernandez - Last Filed: 06/27/17 20:36> History of Present Illness Chief complaint: 3030 History of present illness: Ms. Carvalho is a 66 year old female Exam - Constitutional Vitals: Period Temp Pulse Resp BP Sys/Hope Pulse Ox Last 24 Hr 97.2 F-98.4 F 52-108 18-20 157-197/79-97 93-98 Results - Labs CBC & BMP: 06/27/17 04:54 06/27/17 04:54
[2017-06-27] MEDS: ACETAMINOPHEN 325 MG TABLET PO PRN ×2 (12:22→18:05)
[2017-06-27] MEDS: SODIUM CHLORIDE 0.45% 1,000 ML IV SCH (15:40)
[2017-06-28] MEDS: SODIUM CHLORIDE 0.45% 1,000 ML IV SCH ×2 (00:51→06:15)
[2017-06-28] MEDS: PIPERACILLIN/TAZOBACTAM 3,375 MG in SODIUM CHLORIDE 0.9% 100 ML IV SCH ×2 (02:53→12:06)
[2017-06-28] MEDS: ACETAMINOPHEN 325 MG TABLET PO PRN ×2 (04:34→11:12)
--- NOTE | 2017-06-28 08:45 | CT Report ---
History: Severe headache Date: 06/28/2017 Study: CT head without contrast Comparison exam: No previous head CT available Transaxial CT sections were obtained through the brain without contrast. The ventricles are midline in position without evidence of hydrocephalus. There is no mass or area of parenchymal hemorrhage. There is no gross CT evidence of acute cortical stroke. There is no extra-axial hematoma. The sinuses are generally clear. There is no obvious skull fracture. Impression: No acute intracranial process This CT exam was performed using one or more the following dose reduction techniques: Automated exposure control, adjustment of the MA and/or KV according to patient size, or use of iterative reconstruction technique. PROCEDURE INTERPRETED AT [facility] DEPARTMENT OF RADIOLOGY Final Report Signed by: Dr. Windy Yuen
[2017-06-28] MEDS: INSULIN REGULAR 100 UNIT/ML SUBCUT SCH ×2 (08:54→12:05)
--- NOTE | 2017-06-28 09:16 | Gastrointestinal Progress Note ---
<DarleenRosy Denzel - Last Filed: 06/28/17 09:14> Assessment and Plan (1) Abdominal pain Status: Acute Assessment and plan: 06/28-abdominal pain improved. Tolerating diet at this time. She has for tentative discharge home today per patient. Advance diet and continue to monitor. Plan an addendum to follow Dr. Hernandez. 06/27-5 day history of abdominal pain and distention with nausea. Prior history in the past with no etiology for symptoms at that time other than obstipation/ gastroneuritis. CT of abdomen noted as below showing diverticulosis. Findings of UTI with IV antibiotic initiation noted. No complaints of nausea vomiting. Prior endoscopy also noted as below. Plan an addendum to followed by Dr. Hernandez. Gastroenterology - PN: Subj Interval history: CC: Abdominal pain Patient is seen awake and alert sitting up in chair with family at bedside. States she did not rest very last night due to headache. States that this is improved this morning but she still has somewhat of a headache. Her abdominal pain and bloating is much better as well. She is tolerating her diet and would like to have this advanced at this time. She states that she has for possible discharge later today depending on how she does throughout the day. She denies any nausea, vomiting or diarrhea. She states that she is to be changed to oral antibiotics as well. Patient still voices frustration with her continued abdominal bloating and discomfort and is requesting for a possible referral to [facility] for further testing regarding this. Abdomen is soft, nontender. ROS: Denies shortness of breath or chest pain Exam (Progress Note) - Constitutional Vitals: Period Temp Pulse Resp BP Sys/Hope Pulse Ox Last 24 Hr 96.0 F-98.1 F 60-108 17-20 151-165/83-97 93-97 General appearance: normal weight, no acute distress - Head Head exam: Present: normal inspection, normocephalic - Eye Eye exam: Present: other (Lids and conjunctival are unremarkable). Absent: scleral icterus - ENT ENT exam: Present: normal exam, normal oropharynx - Neck Neck exam: Present: normal inspection - Respiratory Respiratory exam: Present: clear to auscultation bilaterally. Absent: rales, rhonchi, wheezes - Cardiovascular Cardiovascular exam: Present: regular rate and rhythm. Absent: diastolic murmur , JVD, systolic murmur - GI/Abdominal GI/Abdominal exam: Present: normal bowel sounds, soft. Absent: ascites, distended, mass, organomegaly, tenderness - Extremities Exam Extremities exam: Present: normal inspection, full ROM - Back Exam Back exam: Present: normal inspection - Neurological Exam Neurological exam: Present: alert, oriented X3 - Psychiatric Psychiatric exam: Present: normal affect, normal mood - Skin Skin exam: Present: normal color, warm, dry Results - Labs CBC & BMP: 06/27/17 04:54 06/27/17 04:54 Lab Results: I have reviewed the past 24 hour labs Specialty Discharge - Follow Up or Referrals Follow up with: Josef Mcgowan MD [Primary Care Provider] - 07/07/17 9:45 am <Lj Hernandez - Last Filed: 06/28/17 20:48> Exam (Progress Note) - Constitutional Vitals: Period Temp Pulse Resp BP Sys/Hope Pulse Ox Last 24 Hr 96.0 F-98.1 F 60-69 16-18 151-162/83-94 94-97 Results - Labs CBC & BMP: 06/27/17 04:54 06/27/17 04:54
[2017-06-28] MEDS ORDERED: DEXTROSE 50% 25 GM/50 ML SYRINGE IV PRN (09:17)
[2017-06-28] MEDS ORDERED: GLUCAGON 1 MG VIAL IM PRN (09:17)
[2017-06-28] MEDS: DOCUSATE SODIUM 100 MG CAPSULE PO SCH (09:55)
[2017-06-28] MEDS: LOSARTAN 50 MG TABLET PO SCH (09:55)
[2017-06-28] MEDS: ENOXAPARIN 40 MG/0.4 ML SYRINGE SUBCUT SCH (09:56)
[2017-06-28] MEDS: PANTOPRAZOLE 40 MG TABLET PO SCH (09:57)
--- NOTE | 2017-06-28 10:39 | Discharge Summary ---
Hospital Course - Hospital Course Hospital Course: 66-year-old female who was admitted to acute care with abdominal distention and some pain. She has history of diabetes, migraine headaches, hypertension, fibromyalgia, chronic back pain, she had a CT abdomen and pelvis done which showed some increased stool. Patient was found to have a urinary tract infection and has been started on antibiotics. This morning she is complaining about headache. It is hurting behind her eyes and different from her regular migraine headaches. It has been going on for couple of weeks. She requests evaluation by neurology. Patient is also seeing pain clinic as an outpatient. A CT head was done which was negative for any acute changes. She will be discharged later on today after seen by neurology. I will see her in the office in 10 days. Diagnosis - Discharge Diagnosis (1) Abdominal pain Status: Acute (2) UTI (urinary tract infection) Status: Acute (3) GERD (gastroesophageal reflux disease) Status: Chronic (4) History of diverticulosis Status: Chronic (5) Hypertension Status: Chronic (6) Type 2 diabetes mellitus Status: Chronic Discharge Plan - Discharge Data Disposition: Disch To Home/Self Care Condition at Discharge: Stable Discharge Diet: advance to your usual diet Activity: resume usual activities as tolerated Hygiene: no restrictions - Discharge Medications New Ciprofloxacin Tab [Cipro Tab] 500 mg PO BID #10 tablet Continue Potassium Chloride 20 meq PO DAILY Cyclobenzaprine [Flexeril] 15 mg PO BID PRN PRN Reason: Pain Metformin HCl [Metformin HCl ER] 1,000 mg PO BID Docusate Sodium 200 mg PO BID Pantoprazole Tab [Protonix Tab] 40 mg PO BID Losartan [Cozaar] 50 mg PO DAILY Magnesium Oxide 2 tablet PO BID Citalopram [CeleXA] 40 mg PO BEDTIME Oxybutynin Chloride [Oxybutynin Chloride ER] 15 mg PO DAILY Cholecalciferol [Vitamin D3] 2,000 unit PO DAILY Calcium Citrate 600 mg PO QPM Fluorouracil 5% Cream [Efudex 5% Cream] 1 applic TOP BID Gabapentin Cap/Tab [Neurontin Cap/Tab] 400 mg PO TID Insulin Degludec [Tresiba Flextouch U-200] 200 units SUBCUT DAILY Glimepiride 4 mg PO BID Saccharomyces Boulardii [Probiotic] 10 mg PO DAILY Discontinued sitaGLIPtin [Januvia] 100 mg PO DAILY - Follow Up or Referral - Forms/Instructions Additional Discharge Instructions: Appointment in the office in 10 days with TCM and urinalysis. Call in her antibiotics Exam - Constitutional Vitals: Period Temp Pulse Resp BP Sys/Hope Pulse Ox Last 24 Hr 96.0 F-98.1 F 60-108 17-20 151-165/83-97 93-97 Exam: Examination: GENERAL: NAD. NECK: Neck is supple. CVS: Regular rate and rhythm. S1 and S2 are normal. RESPIRATORY: Lungs are clear. ABDOMEN: Soft and nontender. EXT: No edema ASSISTANT ACCOUNTING MANAGER: Nonfocal SKIN: Warm and dry. MSK: No obvious deformity. Discharge Results Procedures and tests throughout hospitalization: Pending Orders 06/25/17 00:00 Blood Culture Stat Labs on day of discharge: Labs from last 24 hours 06/28/17 06/27/17 06/27/17 07:09 19:13 16:04 POC Glucose 189 H 250 H 142 H 06/27/17 11:13 POC Glucose 197 H Preliminary micro results at discharge 06/25/17 00:00 Blood Culture - Preliminary Blood No growth at 1 day 06/26/17 00:09 Blood Culture - Preliminary Blood No growth at 1 day DS: Provider Date of admission: 06/27/17 16:16 Primary care physician: Josef Mcgowan MD Attending physician on admission: Josef Mcgowan MD Consults: 06/25/17 23:33 Consult to Case Mgmt/Social Srvs [CONS] Routine Reason for Case Mgmt/Social Srvs: Discharge Planning 06/26/17 10:46 Consult to Physician [CONS] Routine Comment: abd distention Consulting Provider: Roger Pompa V Consult Notification Comment: at [address] Pompa to let him know of consult 06/28/17 07:54 Consult to Physician [CONS] Routine Comment: headaches Consulting Provider: Richard Medina Discharging clinician: Josef Mcgowan MD
[2017-06-28 12:16] VITALS: BP 159/88
--- NOTE | 2017-06-28 15:23 | Neurology Consult Note ---
History of Present Illness History of present illness: 66 years old right-handed white lady with past medical history significant for multiple medical problems including diabetes, hypertension, osteoarthritis, restless leg syndrome, depression and overactive bladder, sleep apnea on CPAP, migraine headaches admitted to the hospital with acute migraine attack. Patient reported that she was hurting bilaterally in the frontal region. Pain was throbbing in character. She could not tolerate the pain and came to the hospital. At the same time she is complaining of abdominal distention and intermittent abdominal pain as well. She was given morphine injection last night and this morning she does not have any more headaches. She is back to her baseline normal self. No tingling numbness or weakness reported. CT of the head is unremarkable for any acute pathology. Home Medications Medication Instructions Recorded Confirmed Type Cyclobenzaprine [Flexeril] 15 mg PO BID PRN 09/03/15 06/26/17 History Docusate Sodium 200 mg PO BID 09/03/15 06/26/17 History Metformin HCl [Metformin HCl ER] 1,000 mg PO BID 09/03/15 06/26/17 History Pantoprazole Tab [Protonix Tab] 40 mg PO BID 09/03/15 06/26/17 History Potassium Chloride 20 meq PO DAILY 09/03/15 06/26/17 History Citalopram [CeleXA] 40 mg PO BEDTIME 04/20/17 06/26/17 History Glimepiride 4 mg PO BID 04/20/17 06/26/17 History Losartan [Cozaar] 50 mg PO DAILY 04/20/17 06/26/17 History Magnesium Oxide 2 tablet PO BID 04/20/17 06/26/17 History Oxybutynin Chloride [Oxybutynin 15 mg PO DAILY 04/20/17 06/26/17 History Chloride ER] Cholecalciferol [Vitamin D3] 2,000 unit PO DAILY 05/25/17 06/26/17 History Calcium Citrate 600 mg PO QPM 05/31/17 06/26/17 History Fluorouracil 5% Cream [Efudex 5% 1 applic TOP BID 06/26/17 06/26/17 History Cream] Gabapentin Cap/Tab [Neurontin 400 mg PO TID 06/26/17 06/26/17 History Cap/Tab] Insulin Degludec [Tresiba 200 units SUBCUT DAILY 06/26/17 06/26/17 History Flextouch U-200] Saccharomyces Boulardii [Probiotic] 10 mg PO DAILY 06/26/17 06/26/17 History Ciprofloxacin Tab [Cipro Tab] 500 mg PO BID #10 tablet 06/28/17 Rx Allergies Allergy/AdvReac Type Severity Reaction Status Date / Time codeine AdvReac Unknown/Unable Verified 09/03/15 16:27 to obtain 12 point system: reviewed and no additional remarkable complaints except as stated Medical,Surgical,& Family Hx - Medical History Cardio: History of: Hypertension Psychological: History of: Depression Neurology: History of: Migraine, Peripheral Neuropathy, Seizures (2010) Endocrine: History of: Diabetes Mellitus (NIDDM), Thyroid Disorder (has 2 tumors on thyroid-benign, radioactive pill) No history of: Dyslipidemia Respiratory: History of: Asthma (brought on by cigarettes or perfume), Obstructive Sleep Apnea (USES CPAP AT HOME) Genitourinary: History of: Kidney Stones (2010) No history of: Bladder Problem Gastrointestinal: History of: Bowel Obstruction, GERD, GI Problems (DIABETIC INTESTINAL PARALYSIS) Musculoskeletal: History of: Amputation, Musculoskeletal Problems (diabetic neuropathy) Hematology: No history of: Blood Transfusion Reaction Other: History of: Anesthesia Reactions (bp drops) No history of: Cancer - Surgical History Cardiac Surgeries: Sugical HX of: Cardiac Catheterization (2011) Thoracic Surgeries: Patient denies;: Organ Transplant, Lobectomy Neurologic Surgeries: Patient denies: Neurologic Surgery HEENT Surgeries: Surgical HX of: Tonsilectomy & Adenoidectomy Patient denies: Thyroid Surgery Comment Only: Eye Surgery (cataracts) Abdominal Surgeries: Surgical HX of: Abdominal Surgery, Appendectomy, Cholecystectomy, Colonoscopy, EGD Patient denies: Hernia Repair Reproductive Surgeries: Surgical HX of;: Genitourinary Surgery (had stones removed), Gynecologic Surgery, Hysterectomy Orthopedic Surgeries: Surgical HX of;: Orthopedic Surgery (knee scope RIGHT) - Family History Family History: Reports;: Family Cancer (pancreatic cancer-uncle, mother-breast/ colon), Family Diabetes - Social History Smoking Status: Unknown if ever smoked Frequency of Alcohol Use: None Type of Drug Use: None Exam - Constitutional Vitals: Period Temp Pulse Resp BP Sys/Hope Pulse Ox Last 24 Hr 96.0 F-98.1 F 60-69 16-20 151-165/83-94 94-97 Exam: GENERAL: Patient is in no acute distress. NECK: Neck is supple. There is no JVD. No carotid bruits present. No thyroid masses. CVS: First and second heart sounds are normal. There is no S3 present. Regular rate and rhythm. RESPIRATORY: Lungs are clear to auscultation without any rales or rhonchi. ABDOMEN: Soft and non-tender. Bowel sounds are present. There is no hepatosplenomegaly. EXT: There is no palpable edema. Peripheral pulses are present. Skin: No rashes Central Nervous system: General: Alert, awake and Oriented x 3 Speech: Fluent Comprehension: Intact and normal Facial expressions: Normal Cranial Nerves: CN1/Olfactory: Normal CN II/ Optic: Normal, Visual Hill unreliable CN III, and : WU & EOMI CN V: Normal & intact CN VII: face is symmetric CNVIII: Normal CN XI/X/XI/XII: Intact and Normal Motor: Bulk and Tone is normal. Strength in the right 5/5 Strength in the left 5/5 Sensory: Grossly intact for all the modalities of PP, LT and temp sense Reflexes: 1+ and symmetrical Cerebellar function: Normal finger to nose and heel to mohan testing. Toes: Equivocal Gait: Normal heel to heel and toe to toe and tandem walk. Results - Labs CBC & BMP: 06/27/17 04:54 06/27/17 04:54 Assessment and Plan (1) Migraine headache Status: Acute Assessment and plan: Patient does not want any preventive medications We will start Fioricet 1 tablet every 4 to every 6 as needed Patient is back to her baseline Okay to go home from neuro standpoint Sign off please call as needed Current Visit: Yes Specialty Discharge - Follow Up or Referrals Follow up with: Josef Mcgowan MD [Primary Care Provider] - 07/07/17 9:45 am
[2017-06-28] MEDS ORDERED: BUTALBITAL/ACETAMIN/CAFFEINE 50-325-40 MG TABLET PO PRN (15:26)
== END 2017-06-28 15:40 | disposition home or self-care (01) | DRG 690 ==
LOC: N.5E 19:42 → N.ED 19:42 → N.5E 06-26 00:15
PROVIDERS: ADMIT Internal Medicine; ATTEND Internal Medicine

== ENCOUNTER 2019-09-30 18:36 | Observation (INO) ==
[2019-09-30 20:33] LABS: Basophils # 0.1 10*3/uL (0.0-0.2); Basophils % 0.9 % (0.0-0.8); Eosinophils # 0.4 10*3/uL (0.0-0.87); Eosinophils % 4.3 % (0.00-10.9); Hematocrit 42.1 VOL% (35.7-47.0); Hemoglobin 13.9 GM/DL (12.0-16.0); Immature Granulocytes % 0.7 %; Immature Granulocytes Absolute 0.06 #; Lymphocytes # 1.6 10*3/uL (1.4-4.0); Mean Corpuscular Volume 88.6 FL (87-102); Monocytes % 5.4 % (1.7-12.7); Neutrophils % 70.7 % (38.7-73.9); Platelet Count 254 T/CUMM (130-400); Red Blood Count 4.75 MC/CUMM (3.8-5.5); Red Cell Distribution Width 12.6 % (9.3-17.3); White Blood Count 9.1 T/CUMM (4-12)
[2019-09-30 20:58] LABS: Calcium 9.4 MG/DL (8.5-10.1); Osmolality,Calculated 279.5 MOS/KG (273-304)
[2019-09-30] MEDS ORDERED: DEXTROSE 10% 250 ML BAG IV PRN (21:37)
[2019-09-30] MEDS ORDERED: ONDANSETRON 4 MG/2 ML VIAL IV PRN (21:37)
[2019-09-30] MEDS ORDERED: GLUCAGON 1 MG VIAL IM PRN (21:37)
[2019-09-30] MEDS: ACETAMINOPHEN 325 MG TABLET PO PRN (23:57)
[2019-10-01] MEDS ORDERED: PANTOPRAZOLE 40 MG TABLET PO SCH ×3 (00:49→21:00)
[2019-10-01] MEDS: ALUM/MAG/SIMETH/LIDO VISC 1:1 30 ML BOTTLE PO PRN ×2 (00:59→23:52)
[2019-10-01] MEDS: PANTOPRAZOLE 40 MG TABLET PO SCH ×3 (00:59→10:34)
[2019-10-01 04:42] LABS: Basophils # 0.1 10*3/uL (0.0-0.2); Basophils % 1.2 % (0.0-0.8); Eosinophils # 0.3 10*3/uL (0.0-0.87); Eosinophils % 4.5 % (0.00-10.9); Hematocrit 39.8 VOL% (35.7-47.0); Hemoglobin 13.1 GM/DL (12.0-16.0); Immature Granulocytes % 0.3 %; Immature Granulocytes Absolute 0.02 #; Lymphocytes # 1.3 10*3/uL (1.4-4.0); Mean Corpuscular HGB Conc 32.9 GM/DL (32-36); Mean Corpuscular Volume 88.8 FL (87-102); Mean Platelet Volume 10.1 FL (9.6-12.0); Monocytes % 7.7 % (1.7-12.7); Neutrophils % 65.3 % (38.7-73.9); Platelet Count 196 T/CUMM (130-400); Red Blood Count 4.48 MC/CUMM (3.8-5.5); Red Cell Distribution Width 12.6 % (9.3-17.3)
[2019-10-01 04:59] LABS: Albumin 2.9 G/DL (3.4-5.0); Bilirubin,Total 0.4 MG/DL (0.2-1.0); Calcium 8.1 MG/DL (8.5-10.1); Osmolality,Calculated 291.7 MOS/KG (273-304); Total Protein 5.6 G/DL (6.4-8.3)
[2019-10-01] MEDS: ACETAMINOPHEN 325 MG TABLET PO PRN ×2 (07:42→17:40)
[2019-10-01] MEDS: INSULIN REGULAR 100 UNIT/ML SUBCUT SCH ×4 (08:40→23:07)
[2019-10-01] MEDS ORDERED: NAPROXEN 500 MG TABLET PO PRN (08:54)
[2019-10-01] MEDS ORDERED: CYCLOBENZAPRINE 10 MG TABLET PO PRN (08:54)
[2019-10-01] MEDS ORDERED: METHOCARBAMOL 750 MG TABLET PO PRN (08:54)
[2019-10-01] MEDS ORDERED: PSEUDOEPHEDRINE 30 MG TABLET PO PRN (08:54)
[2019-10-01] MEDS ORDERED: CETIRIZINE 10 MG TABLET PO PRN (08:54)
[2019-10-01] MEDS ORDERED: MAGNESIUM SULF RIDER 2 GM in PREMIX 1 EACH IV PRN (08:57)
[2019-10-01] MEDS ORDERED: MAGNESIUM SULF RIDER 4 GM in PREMIX 1 EACH IV PRN (08:57)
[2019-10-01] MEDS ORDERED: CHOLECALCIFEROL 5,000 UNIT TABLET PO SCH (09:00)
[2019-10-01] MEDS ORDERED: LOSARTAN 50 MG TABLET PO SCH (09:00)
[2019-10-01] MEDS ORDERED: sitaGLIPtin 100 MG TABLET PO SCH (09:00)
[2019-10-01] MEDS ORDERED: VALSARTAN 80 MG TABLET PO SCH (09:00)
[2019-10-01] MEDS ORDERED: ENOXAPARIN 40 MG/0.4 ML SYRINGE SUBCUT SCH (09:00)
[2019-10-01] MEDS ORDERED: DOCUSATE SODIUM 100 MG CAPSULE PO SCH ×2 (09:00)
[2019-10-01] MEDS ORDERED: POTASSIUM CHLORIDE 20 MEQ TABLET PO SCH (09:00)
[2019-10-01] MEDS ORDERED: CALCIUM (CARBONATE)/VITAMIN D 600 MG-400 UNIT TABLET PO SCH (11:30)
[2019-10-01] MEDS: GABAPENTIN 400 MG CAPSULE PO SCH ×3 (14:27→23:08)
[2019-10-01] MEDS: MAGNESIUM OXIDE 400 MG TABLET PO SCH ×2 (14:28→23:07)
[2019-10-01] MEDS: OMEGA 3 ACID ETHYL ESTERS 1 GM CAPSULE PO SCH ×2 (14:30→23:07)
[2019-10-01] MEDS: GLIMEPIRIDE 4 MG TABLET PO SCH ×2 (14:32→23:12)
[2019-10-01 18:05] LABS: Troponin I < 0.015 NG/ML (0.00-0.045)
[2019-10-01] MEDS ORDERED: POLYETHYLENE GLYCOL POWDER 17 GM PACK PO SCH (21:00)
[2019-10-01] MEDS ORDERED: CITALOPRAM 40 MG TABLET PO SCH (21:00)
[2019-10-01] MEDS ORDERED: INSULIN GLARGINE 100 UNIT/ML SUBCUT SCH (21:00)
[2019-10-01] MEDS ORDERED: PRAMIPEXOLE 0.25 MG TABLET PO SCH (21:00)
[2019-10-02 05:17] LABS: Osmolality,Calculated 295.6 MOS/KG (273-304)
[2019-10-02] MEDS: INSULIN REGULAR 100 UNIT/ML SUBCUT SCH ×2 (08:39→12:51)
[2019-10-02] MEDS ORDERED: LACTOBACILLUS ACIDOPHILUS/BULGARICUS CAPLET PO SCH (09:00)
[2019-10-02 12:40] VITALS: BP 179/66
[2019-10-02] MEDS: GABAPENTIN 400 MG CAPSULE PO SCH (12:51)
[2019-10-02] MEDS: ACETAMINOPHEN 325 MG TABLET PO PRN (13:11)
== END 2019-10-02 14:30 | disposition home or self-care (01) ==
LOC: N.ED 18:36 → N.EDINP 18:36 → N.2W 22:19
PROVIDERS: ADMIT Internal Medicine; ATTEND Internal Medicine